=== PATIENT | female | born 1990 | race Caucasian/White ===

== ENCOUNTER → 2022-05-07 | Outpatient (CLI) | payer OTHER ==
[~2022-05-07] MED LIST: AMOXICILLIN875 MG PO; CIPRO 500MG TA500 MG PO; DULCOLAX STOOL100 MG PO; MUCINEX 60600 MG/TA1; PRENATAL1 TA3; PROVENTIL0.09 MG/A1 IH; ROXICODONE 55 MG/TAB PO; TYLENOL 500MG500 MG PO
== END ==
LOC: MC.RAD 12:45
DX: N64.4 Mastodynia (principal)

== ENCOUNTER 2022-05-10 09:49 | Emergency (ER) | payer OTHER ==
[~2022-05-10] VITALS: Ht 165.1 cm; Wt 73.6 kg
[~2022-05-10 09:49] MED LIST changes: -DULCOLAX STOOL100 MG PO; -ROXICODONE 55 MG/TAB PO; -TYLENOL 500MG500 MG PO
[2022-05-10 10:19] VITALS: BP 125/80; TEMP 98.9
[2022-05-10 11:30] LABS: BASO # 0.1 K/mm3 (0.0-0.2); BASO % 0.4 % (0.0-2.0); EOS # 0.2 K/mm3 (0.0-0.7); GRAN # 8.7 K/mm3 (1.4-6.5); HEMATOCRIT 32.4 % (37.0-47.0); HEMOGLOBIN 10.9 g/dl (12.5-16.0); LYMPH # 1.8 K/mm3 (1.2-3.4); LYMPH % 15.4 % (20.0-51.0); MEAN CELL VOLUME 95 fl (80.0-100.0); MEAN CORPUSCULAR HEMOGLOBIN 32 pg (27-31); MEAN CORPUSCULAR HGB CONC 34 g/dl (33.0-37.0); MEAN PLATELET VOLUME 10.8 fl (7.4-10.4); MONO # 0.9 K/mm3 (0.1-0.6); MONO % 7.5 % (1.7-9.3); PLATELET COUNT 278 K/mm3 (130-400); RED BLOOD COUNT 3.41 M/mm3 (4.10-5.30); REDCELL DISTRIBUTION WIDTH-CV 13.4 % (11.5-14.5)
[2022-05-10 11:40] LABS: CALCIUM 8.7 mg/dL (8.4-10.2); CREATININE, serum 0.66 mg/dL (0.57-1.11); POTASSIUM 3.8 mmol/L (3.5-4.5)
[2022-05-10] MEDS ORDERED: TYLENOL 500MG500 MG PO (14:04)
[2022-05-10] MEDS ORDERED: ROXICODONE 55 MG/TAB PO (14:04)
[2022-05-10] MEDS ORDERED: DULCOLAX STOOL100 MG PO (14:14)
[2022-05-10 14:25] VITALS: PULSE 96
== END 2022-05-10 18:49 | disposition home or self-care (01) ==
LOC: COL.ER 09:49
PROVIDERS: Emergency Medicine
DX: O92.29 Other disorders of breast associated with pregnancy and the puerperium (principal); Q83.9 Congenital malformation of breast, unspecified; Z28.310 Unvaccinated for COVID-19; Z3A.27 27 weeks gestation of pregnancy
CPT/HCPCS: J2270; J3010; Q9967

== ENCOUNTER → 2022-05-12 | Outpatient (CLI) | payer OTHER ==
[~2022-05-12] MED LIST changes: +DULCOLAX STOOL100 MG PO; +ROXICODONE 55 MG/TAB PO; +TYLENOL 500MG500 MG PO
== END ==
LOC: COL.RAD 10:45
DX: N64.89 Other specified disorders of breast (principal); Z98.82 Breast implant status
CPT/HCPCS: 32108